=== PATIENT | female | born 1990 | race Caucasian/White ===

== ENCOUNTER 2018-04-02 09:05 | Emergency (ER) | payer OTHER ==
[~2018-04-02] VITALS: Ht 170.2 cm; Wt 80.0 kg
[2018-04-02] MEDS ORDERED: KEFLEX500 MG PO (10:12)
[2018-04-02 10:26] VITALS: BP 148/90
== END 2018-04-02 10:30 | disposition home or self-care (01) ==
LOC: EME 09:05
DX: S41.011A Laceration without foreign body of right shoulder, initial encounter (principal); W22.09XA Striking against other stationary object, initial encounter; F17.200 Nicotine dependence, unspecified, uncomplicated; Z23 Encounter for immunization